=== PATIENT | male | born 1995 | race Caucasian/White ===

== ENCOUNTER 2016-11-10 19:16 | Emergency (ER) | payer OTHER ==
[2016-11-10 19:24] VITALS: BP 138/65; PULSE 83; RESP 18; TEMP 98.6
--- NOTE | 2016-11-10 19:34 | ED ---
General Adult HPI - General Chief complaint: Head Injury Stated complaint: lump on back of head Time Seen by Provider: 11/10/16 19:27 Source: patient, RN notes reviewed Mode of arrival: ambulatory Limitations: no limitations - History of Present Illness Initial comments: 20 yo male presents to the ER with cc of abnormality to the back of the head. Patient's girl friend noticed a bump on the back of the patient's head. They state that it feels firm it is nontender. They were concerned due to it being a bump and he does have a history of Hodgkin's lymphoma suicidal they should be seen. Patient has no other symptoms. Patient has had no recent complaints. Patient denies any recent fever, chills, shortness of breath, chest pain, back pain, abdominal pain, nausea vomiting, numbness or tingling, dysuria or hematuria, constipation or diarrhea, headaches or visual changes, or any other current symptoms. - Related Data Home Medications Medication Instructions Recorded Confirmed No Known Home Medications [No 01/27/16 11/10/16 Known Home Medications] Allergies Allergy/AdvReac Type Severity Reaction Status Date / Time No Known Allergies Allergy Verified 01/27/16 15:24 Review of Systems ROS Statement: Those systems with pertinent positive or pertinent negative responses have been documented in the HPI. ROS Other: All systems not noted in ROS Statement are negative. Past Medical History Past Medical History: GERD/Reflux Additional Past Medical History / Comment(s): SWOLLEN LYMPH NODES LEFT AXILLA, hodgkins lymphoma. had 6 months chemo-2015 History of Any Multi-Drug Resistant Organisms: None Reported Past Surgical History: No Surgical Hx Reported Additional Past Surgical History / Comment(s): lymph node biospy, port left side of chest/later removed Past Anesthesia/Blood Transfusion Reactions: No Reported Reaction Past Psychological History: No Psychological Hx Reported Smoking Status: Current every day smoker Past Alcohol Use History: Occasional Past Drug Use History: Marijuana - Past Family History Mother Family Medical History: Cancer General Exam Limitations: no limitations General appearance: alert, in no apparent distress Head exam: Present: atraumatic, normocephalic, normal inspection, other ( Patient does appear to have a firm nodule on the head that does not move it is not tender to touch there is no redness no fluctuance) Eye exam: Present: normal appearance, PERRL, EOMI. Absent: scleral icterus, conjunctival injection, periorbital swelling Neck exam: Present: normal inspection. Absent: tenderness, meningismus, lymphadenopathy Respiratory exam: Present: normal lung sounds bilaterally. Absent: respiratory distress, wheezes, rales, rhonchi, stridor Cardiovascular Exam: Present: regular rate, normal rhythm, normal heart sounds. Absent: systolic murmur, diastolic murmur, rubs, gallop, clicks Neurological exam: Present: alert, oriented X3 Psychiatric exam: Present: normal affect, normal mood Skin exam: Present: warm, dry, intact, normal color. Absent: rash Course Vital Signs 11/10/16 19:20 Temperature 98.6 F Pulse Rate 83 Respiratory 18 Rate Blood Pressure 138/65 O2 Sat by Pulse 100 Oximetry Medical Decision Making - Medical Decision Making 20-year-old male presents emergency Department chief complaint of lump to the back of the head. Patient this time on exam it is more suspicious to be bone. X-ray of the skull was performed. xrays were discussed. we discussed follow up and return parameters. Patient in agreement with the plan. Disposition Clinical Impression: Occipital exostoses determined by X-ray Disposition: HOME SELF-CARE Condition: Stable Instructions: Head Injury (ED) Additional Instructions: Please follow up with family doctor if symptoms have not improved over the next two days. Please return to the emergency room if your symptoms increase or worsen or for any other concerns. Referrals: Mac Pickard MD [Primary Care Provider] - 1-2 days Time of Disposition: 20:03
--- NOTE | 2016-11-10 20:00 | XR ---
EXAMINATION TYPE: XR skull complete DATE OF EXAM: 11/10/2016 COMPARISON: NONE HISTORY: Lump on the back of the patient's head. Prior PET/CT TECHNIQUE: Frontal and lateral radiographs of the skull were obtained. FINDINGS: Benign-appearing occipital protuberance is seen with no evidence of osseous erosion or ne ical thickening. The diploic space is within normal limits. No evidence of calvarial fracture. Parana eliz sinuses are well aerated. Sutures are intact. IMPRESSION: Benign-appearing occipital exostosis. Otherwise, unremarkable examination.
== END 2016-11-10 20:11 | disposition home or self-care (01) ==
LOC: EC 19:16
DX: M89.8X8 Other specified disorders of bone, other site (principal); F17.200 Nicotine dependence, unspecified, uncomplicated; Z85.71 Personal history of Hodgkin lymphoma
CPT/HCPCS: 70260; 99283

== ENCOUNTER 2016-11-23 22:39 | Emergency (ER) | payer OTHER ==
[2016-11-23 22:56] VITALS: RESP 18
--- NOTE | 2016-11-23 23:47 | ED ---
General Adult HPI - General Chief complaint: Recheck/Abnormal Lab/Rx Stated complaint: left arm tingling; burning Time Seen by Provider: 11/23/16 23:08 Source: patient, family, RN notes reviewed, old records reviewed Mode of arrival: ambulatory Limitations: no limitations - History of Present Illness Initial comments: Chief complaint and history of present illness this is a 20-year-old male with a complaint of a burning sensation to various parts of his body straight lines usually through her over veins. This been ongoing for 2 days. patient appears very anxious. Denies drug use. States he has done cocaine in the past but not recently. Also states that a history of Hodgkin's lymphoma treated 2 years ago for 6 months of chemotherapy. He has had blood work and lymph node biopsies in the past year without apparent recurrence. - Related Data Home Medications Medication Instructions Recorded Confirmed No Known Home Medications [No 01/27/16 11/23/16 Known Home Medications] Allergies Allergy/AdvReac Type Severity Reaction Status Date / Time No Known Allergies Allergy Verified 11/23/16 23:19 Review of Systems ROS Statement: Those systems with pertinent positive or pertinent negative responses have been documented in the HPI. review of systems. No complaint of headache or visual acuity changes denies shortness of breath at this time. No GI/ complaints or problems. Patient states for the last 2 days various parts of his body felt as though is burning long veins and muscles usually in a straight line. Denies any known cause. This may have occurred. All systems were reviewed past medical problemsGERD, history and treatment of Hodgkin's lymphoma. The patient's surgeries include his biopsy of the lymph nodes. Family history includes cancers and include rest, cervical ovarian stomach and bone. Patient denies ALLERGIES. Strongly encouraged stop patient reports that he used to drink too much area slowed down this past week. States he smokes marijuana has done cocaine in the past but not recently. Denies other drugs. ROS Other: All systems not noted in ROS Statement are negative. Past Medical History Past Medical History: GERD/Reflux Additional Past Medical History / Comment(s): SWOLLEN LYMPH NODES LEFT AXILLA, hodgkins lymphoma. had 6 months chemo-2015 History of Any Multi-Drug Resistant Organisms: None Reported Past Surgical History: No Surgical Hx Reported Additional Past Surgical History / Comment(s): lymph node biospy, port left side of chest/later removed Past Anesthesia/Blood Transfusion Reactions: No Reported Reaction Past Psychological History: ADD/ADHD Smoking Status: Current every day smoker Past Alcohol Use History: Occasional Past Drug Use History: Marijuana - Past Family History Mother Family Medical History: Cancer General Exam - General Exam Comments Initial Comments: General: The patient is awake and alert,appears anxious. Can't sit still. Points to various parts of the body of causing a burning sensation never all once visually something somewhere. Vital signs temp 98.3 pulse 95 respiratory rate 18 pulse ox 90% room air blood pressure 126/66 Eye: Pupils are equal, round and reactive to light, extra-ocular movements are intact ; there is normal conjunctiva bilaterally. No signs of icterus. Ears, nose, mouth and throat: There are moist mucous membranes and no oral lesions. Neck: The neck is supple, there is no tenderness several small lymph nodes, nontender. Cardiovascular: There is a regular rate and rhythm. No murmur, rub or gallop is appreciated. Respiratory: Lungs are clear to auscultation, respirations are non-labored, breath sounds are equal. No wheezes, stridor, rales, or rhonchi. Gastrointestinal: Soft, non-distended, non-tender abdomen without masses or organomegaly noted. There is no rebound or guarding present. No CVA tenderness. Bowel sounds are unremarkable. Back: no back pain. Musculoskeletal: Normal ROM, no tenderness, There is no pedal edema. There is no calf tenderness or swelling. Sensation intact. Pulses equal bilaterally 2+. Neurological: no focal or lateralizing findings Skin: no rash noted. Psychiatric: behaviors appear to be irregular. Patient can't sit still, he appears extremely overly anxious Limitations: no limitations Course Vital Signs 11/23/16 22:51 Temperature 98.3 F Pulse Rate 95 Respiratory 18 Rate Blood Pressure 126/66 O2 Sat by Pulse 98 Oximetry Medical Decision Making - Medical Decision Making medical decision-making. The patient's labs within normal limits with a white count of 10 hemoglobin 15 hematocrit of 46. Potassium 4.3 with a BUN of 11 creatinine 0.1 and GFR greater than 60. Glucose 75. Urine triage positive for marijuana. The patient will be advised to call follow-up with family physician and oncologist as needed. The symptoms of burning down straight lines alternating all around the body veins muscles and ribs was discussed but no neurological deficits, no skin irritation no palpable irregularities could be appreciated. - Lab Data Result diagrams: 11/24/16 00:05 11/24/16 00:05 Lab Results 11/24/16 11/24/16 11/24/16 Range/Units 00:05 00:05 00:05 WBC 10.0 (3.8-10.6) k/uL RBC 4.91 (4.30-5.90) m/uL Hgb 15.1 (13.0-17.5) gm/dL Hct 46.5 (39.0-53.0) % MCV 94.7 (80.0-100.0) fL MCH 30.8 (25.0-35.0) pg MCHC 32.6 (31.0-37.0) g/dL RDW 13.5 (11.5-15.5) % Plt Count 247 (150-450) k/uL Neutrophils % 61 % Lymphocytes % 30 % Monocytes % 5 % Eosinophils % 2 % Basophils % 1 % Neutrophils # 6.1 (1.3-7.7) k/uL Lymphocytes # 3.0 (1.0-4.8) k/uL Monocytes # 0.5 (0-1.0) k/uL Eosinophils # 0.2 (0-0.7) k/uL Basophils # 0.1 (0-0.2) k/uL Sodium 144 (137-145) mmol/L Potassium 4.3 (3.5-5.1) mmol/L Chloride 106 (98-107) mmol/L Carbon Dioxide 25 (22-30) mmol/L Anion Gap 13 mmol/L BUN 11 (9-20) mg/dL Creatinine 1.00 (0.66-1.25) mg/dL Est GFR (MDRD) Af Amer >60 (>60 ml/min/1.73 sqM) Est GFR (MDRD) Non-Af >60 (>60 ml/min/1.73 sqM) Glucose 75 (74-99) mg/dL Calcium 10.0 (8.4-10.2) mg/dL Total Bilirubin 0.3 (0.2-1.3) mg/dL AST 28 (17-59) U/L ALT 34 (21-72) U/L Alkaline Phosphatase 49 (38-126) U/L Total Protein 7.1 (6.3-8.2) g/dL Albumin 4.6 (3.5-5.0) g/dL Amylase 81 (30-110) U/L Lipase 183 (23-300) U/L Salicylates <1.0 mg/dL Urine Opiates Screen Not Detected (NotDetected) Ur Oxycodone Screen Not Detected (NotDetected) Urine Methadone Screen Not Detected (NotDetected) Ur Propoxyphene Screen Not Detected (NotDetected) Acetaminophen <10.0 ug/mL Ur Barbiturates Screen Not Detected (NotDetected) U Tricyclic Antidepress Not Detected (NotDetected) Ur Phencyclidine Scrn Not Detected (NotDetected) Ur Amphetamines Screen Not Detected (NotDetected) U Methamphetamines Scrn Not Detected (NotDetected) U Benzodiazepines Scrn Not Detected (NotDetected) Urine Cocaine Screen Not Detected (NotDetected) U Marijuana (THC) Screen Detected H (NotDetected) Disposition Clinical Impression: Burning sensation of skin Disposition: HOME SELF-CARE Condition: Stable Instructions: Paresthesia (ED) Additional Instructions: follow-up with your family doctor. She cannot cerebral troponin however discomfort. Referrals: Mac Pickard MD [Primary Care Provider] - 1-2 days Time of Disposition: 00:46
[2016-11-24 00:20] LABS: Basophils # (A) 0.1 k/uL (0-0.2); Basophils % (A) 1 %; CH 31.5; CHCM 33.4; Eosinophils # (A) 0.2 k/uL (0-0.7); Eosinophils % (A) 2 %; HCT 46.5 % (39.0-53.0); HDW 2.17; HGB 15.1 gm/dL (13.0-17.5); Luc # (Auto) 0.14; Luc % (Auto) 1; Lymphocytes % (A) 30 %; MCH 30.8 pg (25.0-35.0); MCHC 32.6 g/dL (31.0-37.0); MCV 94.7 fL (80.0-100.0); Mean Platelet Volume 7.4; Monocytes # (A) 0.5 k/uL (0-1.0); Monocytes % (A) 5 %; Neutrophils # (A) 6.1 k/uL (1.3-7.7); Neutrophils % (A) 61 %; RBC 4.91 m/uL (4.30-5.90); RDW 13.5 % (11.5-15.5); WBC (Perox) 9.75
[2016-11-24 00:30] LABS: ALT 34 U/L (21-72); AST 28 U/L (17-59); Acetaminophen <10.0 ug/mL; Alkaline Phosphatase 49 U/L (38-126); Amylase 81 U/L (30-110); Anion Gap 13 mmol/L; Blood Urea Nitrogen 11 mg/dL (9-20); Carbon Dioxide 25 mmol/L (22-30); Chloride 106 mmol/L (98-107); Glucose 75 mg/dL (74-99); Non-African American GFR(MDRD) >60 (>60 ml/min/1.73 sqM); Potassium 4.3 mmol/L (3.5-5.1); Salicylate <1.0 mg/dL; Sodium 144 mmol/L (137-145); Total Bilirubin 0.3 mg/dL (0.2-1.3); Total Protein 7.1 g/dL (6.3-8.2)
[2016-11-24 00:50] VITALS: BP 114/54; PULSE 66; TEMP 98.6
== END 2016-11-24 01:00 | disposition home or self-care (01) ==
LOC: EC 22:39
DX: R20.8 Other disturbances of skin sensation (principal); F17.200 Nicotine dependence, unspecified, uncomplicated
CPT/HCPCS: 36415; 80053; 80306; 82150; 83520; 83690; 84484; 85025; 99284

== ENCOUNTER 2016-12-02 04:33 | Emergency (ER) | payer OTHER ==
--- NOTE | 2016-12-02 05:12 | ED ---
Head Injury HPI - General Chief complaint: Head Injury Stated complaint: suicidal,head lac Time Seen by Provider: 12/02/16 04:49 Source: patient, family Mode of arrival: ambulatory Limitations: no limitations - History of Present Illness Initial comments: This patient is 21-year-old man who presents to be evaluated for head injury. He states that he was using his long board to ride home from the bar when he hit a rock and fell forward striking his head. No loss consciousness. He does have laceration. Patient denies other injuries. No change in his vision, no neurologic symptoms no epistaxis. Complaint: head injury, fall -: hour(s) Mechanism of Injury: mechanical fall Location: frontal Loss of Consciousness: no Previous Trauma to this Area: No Place: outdoors Radiation: none Severity: moderate Quality: dull Consistency: constant Provoking factors: none known Other Injuries: laceration Associated Symptoms: repetitive questioning - Related Data Home Medications Medication Instructions Recorded Confirmed No Known Home Medications [No 01/27/16 11/23/16 Known Home Medications] Allergies/Adverse reactions: Allergies Allergy/AdvReac Type Severity Reaction Status Date / Time No Known Allergies Allergy Verified 12/02/16 04:40 Review of Systems ROS Statement: Those systems with pertinent positive or pertinent negative responses have been documented in the HPI. ROS Other: All systems not noted in ROS Statement are negative. Constitutional: Denies: fever, chills, weakness Eyes: Denies: vision change ENT: Denies: ear pain, epistaxis Respiratory: Denies: cough, dyspnea Cardiovascular: Denies: chest pain, syncope Gastrointestinal: Denies: abdominal pain, vomiting Musculoskeletal: Denies: back pain Skin: Denies: rash Neurological: Reports: headache. Denies: weakness, numbness, paresthesias, confusion Past Medical History Past Medical History: GERD/Reflux Additional Past Medical History / Comment(s): SWOLLEN LYMPH NODES LEFT AXILLA, hodgkins lymphoma. had 6 months chemo-2015 History of Any Multi-Drug Resistant Organisms: None Reported Past Surgical History: No Surgical Hx Reported Additional Past Surgical History / Comment(s): lymph node biospy, port left side of chest/later removed Past Anesthesia/Blood Transfusion Reactions: No Reported Reaction Past Psychological History: ADD/ADHD Smoking Status: Current every day smoker Past Alcohol Use History: Occasional Past Drug Use History: Marijuana - Past Family History Mother Family Medical History: Cancer General Exam Limitations: no limitations General appearance: alert, in no apparent distress Head exam: Present: normocephalic, other (There is an approximately 4 cm laceration to the anterior scalp) Eye exam: Present: normal appearance, PERRL, EOMI, nystagmus. Absent: scleral icterus, conjunctival injection ENT exam: Present: normal oropharynx Neck exam: Present: normal inspection, full ROM. Absent: tenderness Respiratory exam: Present: normal lung sounds bilaterally. Absent: respiratory distress, wheezes, rales, rhonchi, stridor, chest wall tenderness Cardiovascular Exam: Present: regular rate, normal rhythm, normal heart sounds. Absent: systolic murmur, diastolic murmur, rubs, gallop GI/Abdominal exam: Present: soft. Absent: distended, tenderness, guarding, rebound Back exam: Absent: CVA tenderness (R), CVA tenderness (L), vertebral tenderness Neurological exam: Present: alert, oriented X3. Absent: motor sensory deficit Skin exam: Present: warm, dry, normal color. Absent: rash Course Vital Signs 12/02/16 04:34 Temperature 98.7 F Pulse Rate 89 Respiratory 20 Rate Blood Pressure 114/64 O2 Sat by Pulse 97 Oximetry Medical Decision Making - Medical Decision Making Patient is 21-year-old man with head injury and a small laceration of the scalp. Discussed a different methods of repair and the patient requests that we use the skin adhesive as he really wants to avoid needles. Explain that this may leave a slightly larger scar the patient states that except was is under the hairline. Skin glue applied, patient tolerated procedure well. Disposition Clinical Impression: Closed head injury, Laceration of scalp Disposition: HOME SELF-CARE Condition: Fair Instructions: Laceration (ED), Head Injury (ED) Referrals: Mac Pickard MD [Primary Care Provider] - 1-2 days
--- NOTE | 2016-12-02 05:40 | CT ---
EXAM: CT Head Without Intravenous Contrast CLINICAL HISTORY: Reason: Pain TECHNIQUE: Axial computed tomography images of the head/brain without intravenous contrast. CTDI is 60.30 mGy and DLP is 1144.70 mGy-cm. This CT exam was performed using one or more of the following dose reduction techniques: automated exposure control, adjustment of the mA and/or kV according to patient size, and/or use of iterative reconstruction technique. COMPARISON: 02/17/15 PET/CT FINDINGS: Brain: Unremarkable. No hemorrhage. No significant white matter disease. No edema. Ventricles: Unremarkable. No ventriculomegaly. Bones/joints: Unremarkable. No acute fracture. Soft tissues: Frontal scalp swelling. Sinuses: Unremarkable as visualized. No acute sinusitis. Mastoid air cells: Unremarkable as visualized. No mastoid effusion. IMPRESSION: No acute hemorrhage, hydrocephalus, or mass effect. Frontal scalp swelling.
[2016-12-02] MEDS ORDERED: TOPICAL SKIN ADHESIVE 1 EACH AMP TOPICAL ONE (06:16)
[2016-12-02 06:32] VITALS: BP 109/70; PULSE 74; RESP 16; TEMP 97.9
== END 2016-12-02 06:31 | disposition home or self-care (01) ==
LOC: EC 04:33
DX: S01.01XA Laceration without foreign body of scalp, initial encounter (principal); F17.200 Nicotine dependence, unspecified, uncomplicated; W20.8XXA Other cause of strike by thrown, projected or falling object, initial encounter; Y92.89 Other specified places as the place of occurrence of the external cause
CPT/HCPCS: 12001; 70450; 99283

== ENCOUNTER 2019-02-09 12:47 | Emergency (ER) | payer OTHER ==
[2019-02-09 13:03] VITALS: RESP 18; TEMP 98
[2019-02-09] MEDS ORDERED: LIDOCAINE 1% INJ 10MG/ML (20 ML MDV) SQ ONE (13:32)
[2019-02-09] MEDS ORDERED: KETOROLAC 60 MG/2 ML VIAL IM STA (13:34)
[2019-02-09] MEDS ORDERED: DIPH,PERTUS(ACELL)TETVAC-LF 0.5 ML VIAL IM ONE (13:34)
--- NOTE | 2019-02-09 14:14 | ED ---
Wound/Laceration HPI - General Chief Complaint: Wound/Laceration Stated Complaint: arm lac Time Seen by Provider: 02/09/19 13:20 Source: patient, EMS Mode of arrival: EMS Limitations: no limitations - History of Present Illness Initial Comments: Patient is a 23-year-old male presenting to emergency Department via EMS with a laceration to his left forearm. Patient states he was carrying some cabinets upstairs when something on the stairwell cut the upper part of his left forearm. Patient states there was a lot of bleeding initially but it is controlled at this time. Patient states he does have some numbness surrounding the wound but is able to move all of his fingers and forearm. Patient denies being on blood thinners. Patient has no other complaints at this time. Patient is unsure of his last tetanus vaccine. Upon arrival to ER, vital signs are stable. - Related Data Home Medications Medication Instructions Recorded Confirmed No Known Home Medications 01/27/16 03/10/17 Allergies Allergy/AdvReac Type Severity Reaction Status Date / Time No Known Allergies Allergy Verified 02/09/19 12:57 Review of Systems ROS Statement: Those systems with pertinent positive or pertinent negative responses have been documented in the HPI. ROS Other: All systems not noted in ROS Statement are negative. Past Medical History Past Medical History: GERD/Reflux Additional Past Medical History / Comment(s): SWOLLEN LYMPH NODES LEFT AXILLA, hodgkins lymphoma. had 6 months chemo-2015 History of Any Multi-Drug Resistant Organisms: None Reported Past Surgical History: No Surgical Hx Reported Additional Past Surgical History / Comment(s): lymph node biospy, port left side of chest/later removed Past Anesthesia/Blood Transfusion Reactions: No Reported Reaction Past Psychological History: ADD/ADHD Smoking Status: Current every day smoker Past Alcohol Use History: Occasional Past Drug Use History: Marijuana - Past Family History Mother Family Medical History: Cancer General Exam - General Exam Comments Initial Comments: GENERAL: Well-appearing, well-nourished and in no acute distress. HEAD: Atraumatic, normocephalic. EYES: Pupils equal round and reactive to light, extraocular movements intact, sclera anicteric, conjunctiva are normal. ENT: Moist mucous membranes. LUNGS: Breath sounds clear to auscultation bilaterally and equal. No wheezes rales or rhonchi. HEART: Regular rate and rhythm without murmurs, rubs or gallops. EXTREMITIES: Normal range of motion, no pitting or edema. No clubbing or cyanosis. NEUROLOGICAL: Normal speech, normal gait. PSYCH: Normal mood, normal affect. SKIN: Warm, Dry, normal turgor, no rashes. Patient has a 5 cm laceration to the left proximal forearm, dorsal aspect. Bleeding is minimal and controlled at this time. Patient also has some old laceration scars to his bilateral forearms. Limitations: no limitations Course Vital Signs 02/09/19 02/09/19 12:58 15:42 Temperature 98 F Pulse Rate 95 71 Respiratory 18 18 Rate Blood Pressure 127/72 125/78 O2 Sat by Pulse 98 98 Oximetry Procedures - Laceration Laceration #1 Consent Obtained: verbal consent Indication: laceration Site: other (Left proximal forearm, dorsal aspect.) Size (cm): 5 Description: linear Depth: simple, single layer Anesthetic Used: lidocaine 1% Anesthesia Technique: local infiltration Amount (mls): 5 Pre-repair: irrigated extensively Type of Sutures: nylon Size of Sutures: 5-0 Number of Sutures: 10 Technique: simple, interrupted Patient Tolerated Procedure: well Medical Decision Making - Medical Decision Making Patient is a 23-year-old male presenting with a 5 cm laceration to his left proximal forearm, dorsal aspect. Bleeding is controlled at this time. X-rays revealed no acute findings, no foreign bodies present. Patient's tetanus was updated today. Patient's wound was irrigated extensively and closed with 10, 5- 0 sutures. Patient tolerated procedure well. Topical antibiotic was applied to the wound and wound was bandaged. Patient will have sutures removed in approximately 7-10 days. Patient will keep wound covered while working. Patient stable for discharge at this time. Return parameters were discussed with the patient he verbalizes understanding. Case discussed with Dr. Calvo. Disposition Clinical Impression: Laceration of left forearm Disposition: HOME SELF-CARE Condition: Stable Instructions (If sedation given, give patient instructions): Care For Your Stitches (ED), Laceration (ED) Additional Instructions: Please return to the Emergency Department if symptoms worsen or any other concerns. Sutures need to removed in 7-10 days. Apply antibiotic ointment once a day. Keep wound covered if outside working. Is patient prescribed a controlled substance at d/c from ED?: No Referrals: None,Stated [Primary Care Provider] - 1-2 days
--- NOTE | 2019-02-09 14:21 | XR ---
EXAMINATION TYPE: XR forearm LT DATE OF EXAM: 02/09/2019 CLINICAL HISTORY: Left forearm laceration proximally. History of remote left-sided forearm fracture. TECHNIQUE: Two views of the left forearm are obtained. COMPARISON: None. FINDINGS: There is no acute fracture or dislocation seen in the left radius or ulna. The left elbow and wrist joints appear within normal limits. The overlying soft tissue demonstrates a superficial laceration of the radial proximal forearm. No radiopaque foreign body. IMPRESSION: There is no acute fracture or dislocation seen in the left radius or ulna. Superficial l aceration is seen of the radial aspect of the proximal forearm without radiopaque foreign body.
[2019-02-09 15:44] VITALS: BP 125/78; PULSE 71
== END 2019-02-09 15:42 | disposition home or self-care (01) ==
LOC: EC 12:47
DX: S51.812A Laceration without foreign body of left forearm, initial encounter (principal); F17.200 Nicotine dependence, unspecified, uncomplicated; Z23 Encounter for immunization; Z85.71 Personal history of Hodgkin lymphoma; Z92.21 Personal history of antineoplastic chemotherapy; W26.8XXA Contact with other sharp object(s), not elsewhere classified, initial encounter; Y93.89 Activity, other specified; Y92.009 Unspecified place in unspecified non-institutional (private) residence as the place of occurrence of the external cause
CPT/HCPCS: 73090; 90715; 99283; 12002; 96372; 90471; J2001; J1885

== ENCOUNTER 2019-12-16 21:15 | Emergency (ER) | payer BC, OTHER ==
[2019-12-16 21:24] VITALS: BP 134/90; PULSE 86; RESP 18; TEMP 98
[2019-12-16] MEDS ORDERED: ACET/COD 300 MG/30 MG STARTER PACK 6 TAB BTL PO STA (22:03)
--- NOTE | 2019-12-16 22:22 | XR ---
EXAMINATION TYPE: XR nasal bone DATE OF EXAM: 12/16/2019 COMPARISON: NONE HISTORY: Pain TECHNIQUE: 3 views FINDINGS: There is nondisplaced comminuted fracture of the anterior nasal bone. The maxillary spine i s intact. There is normal aeration of the maxillary sinuses. There is no sign of a blowout fracture o f the orbits. IMPRESSION: Nasal bone fracture.
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
== END 2019-12-16 22:40 | disposition home or self-care (01) ==
LOC: EC 21:15
DX: S02.2XXA Fracture of nasal bones, initial encounter for closed fracture (principal); Z85.71 Personal history of Hodgkin lymphoma; W50.0XXA Accidental hit or strike by another person, initial encounter
CPT/HCPCS: 70160; 99283

== ENCOUNTER 2020-03-21 15:53 | Emergency (ER) | payer BC ==
[2020-03-21 16:07] VITALS: RESP 18
--- NOTE | 2020-03-21 16:27 | XR ---
EXAMINATION TYPE: XR chest 2V DATE OF EXAM: 03/21/2020 COMPARISON: Chest x-ray September 01, 2014 HISTORY: Cough with hemoptysis. TECHNIQUE: Frontal and lateral views of the chest are obtained. FINDINGS: There is no focal air space opacity, pleural effusion, or pneumothorax seen. The cardiac silhouette size is within normal limits. Slight underlying Scoliotic curvature near the thoracolumbar junction. IMPRESSION: No acute cardiopulmonary process.
--- NOTE | 2020-03-21 17:16 | ED ---
General Adult HPI - General Chief complaint: Upper Respiratory Infection Stated complaint: hemoptysis Time Seen by Provider: 03/21/20 17:15 Source: patient Mode of arrival: ambulatory Limitations: no limitations - History of Present Illness Initial comments: 24-year-old male presenting to the emergency department with a chief complaint of coughing up blood. Patient states he is a frequent smoker and has been smoking more marijuana than usual. Patient states he woke up this morning with his typical chronic cough, however he also developed multiple emesis Kyler's. He denies any chest pain but does report some shortness of breath. States that he also feels wheezy but this is normal for him. No diagnosis of COPD or asthma. Denies any night sweats residuals. Denies cold exposure. - Related Data Previous Rx's Medication Instructions Recorded Amoxic-Pot Clav 875-125Mg 1 tab PO Q12HR 7 Days #14 tab 12/16/19 [Augmentin 875-125] Albuterol Sulfate [Ventolin HFA] 1 - 2 puff INHALATION Q6H PRN #1 03/21/20 inhaler Azithromycin [Zithromax Z-pack (6 0 mg PO DIRECTED #1 pack 03/21/20 tabs)] predniSONE [Deltasone] 20 mg PO DAILY #5 tab 03/21/20 Allergies Allergy/AdvReac Type Severity Reaction Status Date / Time No Known Allergies Allergy Verified 03/21/20 16:31 Review of Systems ROS Statement: Those systems with pertinent positive or pertinent negative responses have been documented in the HPI. ROS Other: All systems not noted in ROS Statement are negative. Past Medical History Past Medical History: GERD/Reflux Additional Past Medical History / Comment(s): SWOLLEN LYMPH NODES LEFT AXILLA, hodgkins lymphoma. had 6 months chemo-2015 History of Any Multi-Drug Resistant Organisms: None Reported Past Surgical History: No Surgical Hx Reported Additional Past Surgical History / Comment(s): lymph node biospy, port left side of chest/later removed Past Anesthesia/Blood Transfusion Reactions: No Reported Reaction Past Psychological History: ADD/ADHD Smoking Status: Current every day smoker Past Alcohol Use History: Occasional Past Drug Use History: Marijuana - Past Family History Mother Family Medical History: Cancer General Exam Limitations: no limitations General appearance: alert, in no apparent distress Head exam: Present: atraumatic, normocephalic, normal inspection Eye exam: Present: normal appearance, PERRL, EOMI Pupils: Present: normal accommodation ENT exam: Present: normal exam, normal oropharynx, mucous membranes moist, TM's normal bilaterally, normal external ear exam Neck exam: Present: normal inspection, full ROM. Absent: tenderness Respiratory exam: Present: wheezes (Mild bilateral wheezing). Absent: normal lung sounds bilaterally, respiratory distress, rales Cardiovascular Exam: Present: regular rate, normal rhythm, normal heart sounds. Absent: systolic murmur, diastolic murmur Extremities exam: Present: normal inspection, full ROM, normal capillary refill. Absent: tenderness, pedal edema, joint swelling, calf tenderness Back exam: Present: normal inspection, full ROM. Absent: tenderness, CVA tenderness (R), CVA tenderness (L) Neurological exam: Present: alert, oriented X3 Psychiatric exam: Present: normal affect, normal mood Skin exam: Present: warm, dry, intact, normal color Course Vital Signs 03/21/20 16:05 Temperature 98.7 F Pulse Rate 85 Respiratory 18 Rate Blood Pressure 121/77 O2 Sat by Pulse 98 Oximetry Medical Decision Making - Medical Decision Making 24-year-old male presenting to the emergency department with a chief complaint of coughing up blood. On physical examination, patient does have very diffuse bilateral wheezing. Patient was given a steroid and will be discharged with an albuterol inhaler. CBC CMP unremarkable. Coags within normal limits. D-dimer negative. Chest x-ray was unremarkable. Vitals are stable. covid negative. Patient is not in any respiratory distress. Return parameters were thoroughly discussed with patient is an attending agreeable. I counseled the patient for smoking cessation for greater than 3 minutes Case discussed with physician. - Lab Data Result diagrams: 03/21/20 17:53 03/21/20 17:53 Lab Results 03/21/20 03/21/20 03/21/20 Range/Units 17:53 17:53 17:53 WBC 12.0 H (3.8-10.6) k/uL RBC 5.31 (4.30-5.90) m/uL Hgb 16.4 (13.0-17.5) gm/dL Hct 49.0 (39.0-53.0) % MCV 92.3 (80.0-100.0) fL MCH 30.8 (25.0-35.0) pg MCHC 33.4 (31.0-37.0) g/dL RDW 12.0 (11.5-15.5) % Plt Count 249 (150-450) k/uL MPV 7.1 Neutrophils % 66 % Lymphocytes % 27 % Monocytes % 5 % Eosinophils % 1 % Basophils % 0 % Neutrophils # 7.9 H (1.3-7.7) k/uL Lymphocytes # 3.2 (1.0-4.8) k/uL Monocytes # 0.6 (0-1.0) k/uL Eosinophils # 0.1 (0-0.7) k/uL Basophils # 0.1 (0-0.2) k/uL PT 10.6 (9.0-12.0) sec INR 1.0 (<1.2) APTT 25.8 (22.0-30.0) sec D-Dimer 0.24 (<0.60) mg/L FEU Sodium 140 (137-145) mmol/L Potassium 4.5 (3.5-5.1) mmol/L Chloride 104 (98-107) mmol/L Carbon Dioxide 27 (22-30) mmol/L Anion Gap 9 mmol/L BUN 15 (9-20) mg/dL Creatinine 0.89 (0.66-1.25) mg/dL Est GFR (CKD-EPI)AfAm >90 (>60 ml/min/1.73 sqM) Est GFR (CKD-EPI)NonAf >90 (>60 ml/min/1.73 sqM) Glucose 85 (74-99) mg/dL Calcium 10.1 (8.4-10.2) mg/dL Total Bilirubin 0.7 (0.2-1.3) mg/dL AST 36 (17-59) U/L ALT 21 (4-49) U/L Alkaline Phosphatase 53 (38-126) U/L Total Protein 8.0 (6.3-8.2) g/dL Albumin 5.0 (3.5-5.0) g/dL Coronavirus (PCR) (Not Detectd) 03/21/20 Range/Units 17:53 WBC (3.8-10.6) k/uL RBC (4.30-5.90) m/uL Hgb (13.0-17.5) gm/dL Hct (39.0-53.0) % MCV (80.0-100.0) fL MCH (25.0-35.0) pg MCHC (31.0-37.0) g/dL RDW (11.5-15.5) % Plt Count (150-450) k/uL MPV Neutrophils % % Lymphocytes % % Monocytes % % Eosinophils % % Basophils % % Neutrophils # (1.3-7.7) k/uL Lymphocytes # (1.0-4.8) k/uL Monocytes # (0-1.0) k/uL Eosinophils # (0-0.7) k/uL Basophils # (0-0.2) k/uL PT (9.0-12.0) sec INR (<1.2) APTT (22.0-30.0) sec D-Dimer (<0.60) mg/L FEU Sodium (137-145) mmol/L Potassium (3.5-5.1) mmol/L Chloride (98-107) mmol/L Carbon Dioxide (22-30) mmol/L Anion Gap mmol/L BUN (9-20) mg/dL Creatinine (0.66-1.25) mg/dL Est GFR (CKD-EPI)AfAm (>60 ml/min/1.73 sqM) Est GFR (CKD-EPI)NonAf (>60 ml/min/1.73 sqM) Glucose (74-99) mg/dL Calcium (8.4-10.2) mg/dL Total Bilirubin (0.2-1.3) mg/dL AST (17-59) U/L ALT (4-49) U/L Alkaline Phosphatase (38-126) U/L Total Protein (6.3-8.2) g/dL Albumin (3.5-5.0) g/dL Coronavirus (PCR) Not Detected (Not Detectd) Disposition Clinical Impression: Cough, Bronchitis Disposition: HOME SELF-CARE Condition: Stable Instructions (If sedation given, give patient instructions): Upper Respiratory Infection (ED) Additional Instructions: Take prescribed medication as directed. Follow with her primary care physician. Return to emergency department if symptoms worsen. Is patient prescribed a controlled substance at d/c from ED?: No Referrals: None,Stated [Primary Care Provider] - 1-2 days Time of Disposition: 18:54
[2020-03-21 18:21] LABS: Basophils # (A) 0.1 k/uL (0-0.2); Basophils % (A) 0 %; Eosinophils # (A) 0.1 k/uL (0-0.7); Eosinophils % (A) 1 %; HGB 16.4 gm/dL (13.0-17.5); Lymphocytes # (A) 3.2 k/uL (1.0-4.8); Lymphocytes % (A) 27 %; MCH 30.8 pg (25.0-35.0); MCHC 33.4 g/dL (31.0-37.0); MCV 92.3 fL (80.0-100.0); Mean Platelet Volume 7.1; Monocytes # (A) 0.6 k/uL (0-1.0); Monocytes % (A) 5 %; Neutrophils # (A) 7.9 k/uL (1.3-7.7); Neutrophils % (A) 66 %; Platelet Count 249 k/uL (150-450); RBC 5.31 m/uL (4.30-5.90)
[2020-03-21 18:32] LABS: ALT 21 U/L (4-49); AST 36 U/L (17-59); African American GFR (CKD) >90 (>60 ml/min/1.73 sqM); Alkaline Phosphatase 53 U/L (38-126); Anion Gap 9 mmol/L; Blood Urea Nitrogen 15 mg/dL (9-20); Calcium 10.1 mg/dL (8.4-10.2); Carbon Dioxide 27 mmol/L (22-30); Chloride 104 mmol/L (98-107); Glucose 85 mg/dL (74-99); Non-African American GFR(CKD) >90 (>60 ml/min/1.73 sqM); Potassium 4.5 mmol/L (3.5-5.1); Sodium 140 mmol/L (137-145); Total Bilirubin 0.7 mg/dL (0.2-1.3)
[2020-03-21 18:46] LABS: D-Dimer 0.24 mg/L FEU (<0.60); Partial Thromboplastin Time 25.8 sec (22.0-30.0); Prothrombin Time 10.6 sec (9.0-12.0)
[2020-03-21 18:59] VITALS: BP 105/85; PULSE 68; TEMP 98.1
== END 2020-03-21 19:11 | disposition home or self-care (01) ==
LOC: EC 15:53
DX: J40 Bronchitis, not specified as acute or chronic (principal); F17.200 Nicotine dependence, unspecified, uncomplicated; Z20.828 Contact with and (suspected) exposure to other viral communicable diseases
CPT/HCPCS: 36415; 71046; 80053; 85025; 85379; 85610; 85730; 87635; 99283; 99406

== ENCOUNTER → 2021-04-10 | Outpatient (CLI) | payer BC, OTHER ==
--- NOTE | 2021-04-10 15:17 | CT ---
EXAMINATION TYPE: CT soft tissue neck w con DATE OF EXAM: 04/10/2021 COMPARISON: PET scan 02/17/2015 HISTORY: Hodgkins lymphoma CT DLP: 440.90 mGycm Automated exposure control for dose reduction was used. Contrast: None Technique: Axial images 3 mm thick sections. Reconstructed images in the coronal plane. FINDINGS: Limited CT sections are obtained through the lung apices which appear unremarkable. Thyroid appears normal. No supraclavicular adenopathy. Vocal cord level is symmetrical. Submandibular glands are normal. Parotid glands appear normal. Torus tubarius and fossa of Rosenmuller are normal. Electrogalvanizing Machine Operator spaces are normal. Parapharyngeal spaces are normal. Couple small left side lymph nodes a re present. IMPRESSION: 1. NO SUSPICIOUS ENLARGED LYMPHADENOPATHY TO SUGGEST RECURRENT.
--- NOTE | 2021-04-10 15:35 | CT ---
EXAMINATION TYPE: CT ChestAbdPelvis w con DATE OF EXAM: 04/10/2021 INDICATION: Hodgkins lymphoma COMPARISON: None CT DLP: 691 mGycm CONTRAST: Performed with Oral Contrast and with IV Contrast, patient injected with 100 mL of Isovue 300. TECHNIQUE: Axial images at 5 mm thick sections. Reconstructed images in the coronal plane. Delayed images through the kidneys. FINDINGS: CT CHEST: Couple small left axillary lymph nodes are present. No enlarged mediastinal or hilar adenop athy is evident. Portion of the thyroid visualized is normal. No suspicious lung nodules or focal infiltrates are present. No enlarged mediastinal or hilar adenopathy is evident. The ascending aorta diameter at the level of the main pulmonary artery is cm. The main pulmonary art della diameter at the bifurcation is cm. CT ABDOMEN: No suspicious periaortic or retrocaval adenopathy is evident. Liver: Normal Spleen: Normal Pancreas: Normal Adrenal glands: The adrenal glands are normal. Gallbladder: Normal Kidneys: No masses are evident. No hydronephrosis is present. No cysts are present. Delayed images were obtained through the kidneys, which remain unremarkable. Aorta: Vascular calcification is within the aorta. Inferior vena cava: Normal. CT PELVIS: No obturator canal or iliac chain adenopathy and inguinal regions as small lymph nodes. Loops of bowel within the abdomen and pelvis are normal. There are loops of bowel which are incom pletely distended or lack oral contrast limiting their evaluation. Appendix: Normal as visualized. Urinary bladder: Normal. Genitourinary structures: Prostate is normal Osseous structures: No suspicious lytic or sclerotic lesions. IMPRESSIONS: 1. No suspicious enlarged lymphadenopathy or suggest recurrent lymphoma.
== END | disposition home or self-care (01) ==
LOC: RADCTMAIN 12:47
PROVIDERS: ATTEND Nurse Practitioner Family
DX: Z08 Encounter for follow-up examination after completed treatment for malignant neoplasm (principal); Z85.71 Personal history of Hodgkin lymphoma
CPT/HCPCS: 70491; 71260; 74177; Q9967